=== PATIENT | female | born 2000 | race Hispanic/Latino ===

== ENCOUNTER 2019-09-21 15:42 | Outpatient (CLI) | payer MEDICAID ==
[2019-09-21] MEDS ORDERED: LACTATED RINGERS 1,000 ML IV SCH (16:00)
[2019-09-21 16:07] VITALS: BP 107/65
[2019-09-21 16:23] LABS: Bacteria,Urine 1+ /HPF (Negative); Bilirubin,Urine NEG (Negative); Blood,Urine SM (Negative); Color,Urine Yellow (Yellow); Mucus,Urine FEW /HPF; Urobilinogen,Urine < 2.0 mg/dL (<2.0)
[2019-09-21] MEDS ORDERED: NITROFURANTOIN MONOHYD/M-CRYST 100 MG CAP PO ONE (17:33)
== END 2019-09-21 17:27 | disposition home or self-care (01) ==
LOC: TRG 15:42
PROVIDERS: ATTEND Obstetrics & Gynecology
DX: O26.893 Other specified pregnancy related conditions, third trimester (principal); M54.9 Dorsalgia, unspecified; R11.0 Nausea; O47.03 False labor before 37 completed weeks of gestation, third trimester; Z3A.34 34 weeks gestation of pregnancy
CPT/HCPCS: 59025; 81001; 87086; 96360; 96361; J7120

== ENCOUNTER 2019-11-07 00:28 | Inpatient (IN) | payer MEDICAID ==
[2019-11-07] MEDS ORDERED: LACTATED RINGERS 1,000 ML IV ONE (03:19)
[2019-11-07] MEDS ORDERED: MINERAL OIL 30 ML ORAL LIQD PO PRN ×2 (04:22→22:00)
[2019-11-07] MEDS ORDERED: ePHEDrine SULFATE 50 MG/1 ML INJ IV PRN ×2 (04:22→06:06)
[2019-11-07] MEDS ORDERED: TERBUTALINE 1 MG/1 ML INJ SUB-Q PRN (04:22)
[2019-11-07] MEDS ORDERED: TERBUTALINE 1 MG/1 ML INJ IVP PRN (04:22)
[2019-11-07] MEDS ORDERED: LIDOCAINE (2%) 20 MG/1 ML VIAL 20 ML MDV INFILTRATI ONE (04:22)
--- NOTE | 2019-11-07 04:25 | History and Physical Report ---
History of Present Illness Date of examination: 11/07/19 Date of admission: 11/07/19 01:04 Chief complaint: contractions History of present illness: Pt presents c/o contractions and noted to have slight cervical change after an hour of ambulation. However, after walking was noted to have a run of tacycardia and occassional variable. Both resolved with IVFs. Pt admitted for augmentation of latent labor. EDC Calculations LMP: 11/01/2019 EDC Confirmation: 11/01/2019 Gestational Age: 11 5/7 weeks Past History : 1 Para: 0 Aborta: 0 Past Medical History: Junevile arthritis Past Surgical History: Negative Past Surgical History Family History Summary: Mother (biol.) - Has Family History of Ovarian Cancer - Entered On: 04/17/2019 Social History: Patient is single Smoking History: Patient has never smoked. 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 Infection History Hx of STD: none HIV Risk Eval: low risk Hepatitis B Risk Eval: low risk Personal hx. of genital herpes: no Partner hx. of genital herpes: no Rash, Viral, or Febrile illness since last LMP? no Varicella/Chicken Pox Status: Immunized TB Risk: no Genetic History Congenital Heart Defect: Mom: no Dad: no Jaclyn Disease: Mom: no Dad: no Thalassemia Mom: no Dad: no Neural Tube Defect Mom: no Dad: no Down's Syndrome Mom: no Dad: no Eder-Sachs Mom: no Dad: no Sickle Cell Disease/Trait Mom: no Dad: no Hemophilia Mom: no Dad: no Muscular Dystrophy Mom: no Dad: no Cystic Fibrosis Mom: no Dad: no Tamy Chorea Mom: no Dad: no Mental Retardation Mom: no Dad: no Fragile X Mom: no Dad: no Other Genetic/Chromosomal Disorder Mom: no Dad: no Child w/other defect Mom: no Dad: no Enviromental Exposures Xray Exposure: no Medication, drug, or alcohol use since LMP: no Chemical/Other Exposure: no Exposure to Cat Liter: no Hx of Parvovirus (Fifth Disease): no 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 Active Medications (reviewed today): None Current Allergies (reviewed today): No known allergies Past History Past Medical History: other (see hpi) Past Surgical History: other (see hpi) [employer] SUPERVISOR History: other (see hpi) Family/Genetic History: other (see hpi) - Obstetrical History Expected Date of Delivery: 11/01/19 Actual Gestation: 40 Week(s) 6 Day(s) : 1 Medications and Allergies Allergies Allergy/AdvReac Type Severity Reaction Status Date / Time No Known Allergies Allergy Verified 09/21/19 15:55 Home Medications Medication Instructions Recorded Confirmed Last Taken Type Nitrofurantoin Butler/M-Cryst 100 mg PO Q12HR #14 capsule 09/21/19 Unknown Rx [Macrobid CAP] Terconazole [Terazol 7 Vag Cream] 1 applicator VG QHS #7 cream.appl 09/21/19 Unknown Rx - Vital Signs Vital signs: Vital Signs Temp Pulse Resp BP Pulse Ox 99.2 F 100 H 16 122/80 98 11/07/19 00:56 11/07/19 00:56 11/07/19 00:56 11/07/19 00:56 11/07/19 00:56 Temp Pulse Resp BP Pulse Ox 99.2 F 91 H 16 122/80 99 11/07/19 00:56 11/07/19 03:39 11/07/19 00:56 11/07/19 00:56 11/07/19 03:39 Results Result Diagrams: 11/07/19 03:30 All other labs normal. Assessment and Plan - Patient Problems (1) 40 weeks gestation of Current Visit: Yes Status: Acute (2) Prolonged latent phase of labor Current Visit: Yes Status: Acute (3) Non-reassuring electronic monitoring tracing Current Visit: Yes Status: Acute Plan to address problem: -resolved with IFVS and Oxygen -will place internal monitors -GBS negative -augment labor
[2019-11-07 04:30] LABS: Hematocrit 31.3 % (30.3-42.9); Hemoglobin 10.7 gm/dl (10.1-14.3); Mean Corpuscular HGB Conc 34 % (30-34); Mean Corpuscular Volume 79 fl (79-97); Platelet Count 195 K/mm3 (140-440); Red Blood Count 3.99 M/mm3 (3.65-5.03); Red Cell Distribution Width 13.7 % (13.2-15.2)
[2019-11-07] MEDS ORDERED: OXYTOCIN DRIP 30 UNITS/500 ML BAG IV SCH ×2 (05:00)
[2019-11-07] MEDS ORDERED: OXYTOCIN 20 UNIT/1000ML DRIP 20 UNITS/1,000 ML BAG IV SCH ×2 (05:00→12:00)
--- NOTE | 2019-11-07 05:24 | Progress Note ---
Assessment and Plan - Patient Problems (1) 40 weeks gestation of Current Visit: Yes Status: Acute (2) Non-reassuring electronic monitoring tracing Current Visit: Yes Status: Acute Plan to address problem: -O2 and fluids for now. I d/w risk of c/s for NRFTs she expressed understanding and all questions were addressed and answered. -currently Cat 1 to 2 (3) Active labor at term Current Visit: Yes Status: Acute Subjective - Subjective Date of service: 11/07/19 Principal diagnosis: 40.6 weeks now active labor Interval history: Pt tracing reviewed and difficult to trace baseline at times. Pt does also have some late decels that are not consistent. tacycardia has resolved. Pt advised of tracing findings and risk of operative delivery if it returns to a cat 3 tracing w/o resolution. Currently tracing is cat 2. I d/w AROM with placement of internal monitors.I d/w risk, benefits of placement including but not limited to injury to scalp and disruption of placenta. Pt expressed understanding and agrees to placement at this time. Contractions are 1-3 min spontaneously so will hold pitocin at this time. Objective - Vital Signs Vital Signs: Vital Signs - 12hr 11/07/19 11/07/19 11/07/19 00:56 00:57 01:02 Temperature 99.2 F Pulse Rate 100 H 100 H 100 H Respiratory 16 Rate Blood Pressure 122/80 [Right] O2 Sat by Pulse 98 98 97 Oximetry 11/07/19 11/07/19 11/07/19 01:07 01:12 01:17 Temperature Pulse Rate 98 H 99 H 94 H Respiratory Rate Blood Pressure [Right] O2 Sat by Pulse 98 97 98 Oximetry 11/07/19 11/07/19 11/07/19 01:22 02:19 02:24 Temperature Pulse Rate 89 97 H 98 H Respiratory Rate Blood Pressure [Right] O2 Sat by Pulse 98 98 97 Oximetry 11/07/19 11/07/19 11/07/19 02:29 02:34 02:39 Temperature Pulse Rate 77 89 88 Respiratory Rate Blood Pressure [Right] O2 Sat by Pulse 98 99 98 Oximetry 11/07/19 11/07/19 11/07/19 02:44 02:49 02:54 Temperature Pulse Rate 94 H 94 H 103 H Respiratory Rate Blood Pressure [Right] O2 Sat by Pulse 98 98 98 Oximetry 11/07/19 11/07/19 11/07/19 02:59 03:04 03:09 Temperature Pulse Rate 100 H 89 97 H Respiratory Rate Blood Pressure [Right] O2 Sat by Pulse 98 99 98 Oximetry 11/07/19 11/07/19 11/07/19 03:14 03:19 03:24 Temperature Pulse Rate 96 H 98 H 89 Respiratory Rate Blood Pressure [Right] O2 Sat by Pulse 97 98 98 Oximetry 11/07/19 11/07/19 11/07/19 03:29 03:34 03:39 Temperature Pulse Rate 87 89 91 H Respiratory Rate Blood Pressure [Right] O2 Sat by Pulse 98 99 99 Oximetry - Exam Cardiovascular: Normal S1, Normal S2 FHR: category 2 Cervical Dilatation: 5 (AROM with clear fluid noted. Both monitors placed w/o difficulty with clear fluid flash back in iupc tubing.) Cervical Effacement Percentage: 85 station: 0 Uterine Contraction Pattern: Regular Uterine Tone Measurement Phase: Resting Deep Tendon Reflex Grade: Normal +2 - Labs Labs: Abnormal Labs 11/07/19 03:30 WBC 11.6 H MCH 27 L Laboratory Results - last 24 hr 11/07/19 11/07/19 03:30 03:30 WBC 11.6 H RBC 3.99 Hgb 10.7 Hct 31.3 MCV 79 MCH 27 L MCHC 34 RDW 13.7 Plt Count 195 Blood Type B POSITIVE Antibody Screen Negative
[2019-11-07] MEDS ORDERED: DEXMEDETOMIDINE 200 MCG/2 ML VIAL IV ONE ×2 (05:47→06:56)
[2019-11-07] MEDS ORDERED: NALOXONE 2 MG/2 ML INJ IV PRN (06:06)
--- NOTE | 2019-11-07 06:07 | Anesthesia Consultation ---
Anesthesia Consult and Med Hx Date of service: 11/07/19 - Airway Anesthetic Teeth Evaluation: Good ROM Head & Neck: Adequate Mental/Hyoid Distance: Adequate Mallampati Class: Class II Intubation Access Assessment: Good - Pulmonary Exam CTA: Yes - Cardiac Exam Cardiac Exam: RRR - Pre-Operative Health Status ASA Pre-Surgery Classification: ASA2, Emergency Proposed Anesthetic Plan: Epidural - Pulmonary Hx Asthma: No - Cardiovascular System Hx Hypertension: No - Central Nervous System Hx Seizures: No Hx Psychiatric Problems: No - Endocrine Hx Renal Disease: Yes (UTI) Hx Hypothyroidism: No Hx Hyperthyroidism: No - Hematic Hx Anemia: No Hx Sickle Cell Disease: No - Other Systems Hx Alcohol Use: Yes (BEFORE )
--- NOTE | 2019-11-07 06:09 | Progress Note ---
Labor Epidural - Labor Epidural Start Time: 05:56 Stop Time: 05:59 Performed by:: MARA BRIZUELA Procedure: Patient is requesting a laboring epidural for laboring pain. Patient IDed, H&P reviewed, all questions and concerns were answered, and consent was signed. Timeout was performed at bedside. Patient in sitting position. Sterile prep and drape was performed. [3] ml of 1% lidocaine skin wheal at L[3]- L [4]. 18- gauge Touhy epidural needle was advanced to loss of resistance with air technique. Negative CSF negative blood. Epidural catheter advanced to [15] centimeters. [-] Aspiration [-] test dose. Sterile dressing applied. Patient tolerated procedure.
[2019-11-07] MEDS ORDERED: BUPIVACAINE/PF (0.25%) 2.5 MG/ML 10 ML VIAL INFILTRATI ONE (06:53)
--- NOTE | 2019-11-07 06:55 | Progress Note ---
Assessment and Plan A: 19 y.o. @ term in active labor. Cervical exam: 7.5/90/0. P: Continue with L&D care. Anticipate . Subjective - Subjective Date of service: 11/07/19 (Pt wth pain on left side.) Principal diagnosis: 40.6 weeks now active labor Objective - Vital Signs Vital Signs: Vital Signs - 12hr 11/07/19 11/07/19 11/07/19 00:56 00:57 01:02 Temperature 99.2 F Pulse Rate 100 H 100 H 100 H Respiratory 16 Rate Blood Pressure Blood Pressure 122/80 [Right] O2 Sat by Pulse 98 98 97 Oximetry 11/07/19 11/07/19 11/07/19 01:07 01:12 01:17 Temperature Pulse Rate 98 H 99 H 94 H Respiratory Rate Blood Pressure Blood Pressure [Right] O2 Sat by Pulse 98 97 98 Oximetry 11/07/19 11/07/19 11/07/19 01:22 02:19 02:24 Temperature Pulse Rate 89 97 H 98 H Respiratory Rate Blood Pressure Blood Pressure [Right] O2 Sat by Pulse 98 98 97 Oximetry 11/07/19 11/07/19 11/07/19 02:29 02:34 02:39 Temperature Pulse Rate 77 89 88 Respiratory Rate Blood Pressure Blood Pressure [Right] O2 Sat by Pulse 98 99 98 Oximetry 11/07/19 11/07/19 11/07/19 02:44 02:49 02:54 Temperature Pulse Rate 94 H 94 H 103 H Respiratory Rate Blood Pressure Blood Pressure [Right] O2 Sat by Pulse 98 98 98 Oximetry 11/07/19 11/07/19 11/07/19 02:59 03:04 03:09 Temperature Pulse Rate 100 H 89 97 H Respiratory Rate Blood Pressure Blood Pressure [Right] O2 Sat by Pulse 98 99 98 Oximetry 11/07/19 11/07/19 11/07/19 03:14 03:19 03:24 Temperature Pulse Rate 96 H 98 H 89 Respiratory Rate Blood Pressure Blood Pressure [Right] O2 Sat by Pulse 97 98 98 Oximetry 11/07/19 11/07/19 11/07/19 03:29 03:34 03:39 Temperature Pulse Rate 87 89 91 H Respiratory Rate Blood Pressure Blood Pressure [Right] O2 Sat by Pulse 98 99 99 Oximetry 11/07/19 11/07/19 11/07/19 05:51 05:56 05:59 Temperature Pulse Rate 113 H 109 H Respiratory Rate Blood Pressure 123/67 Blood Pressure [Right] O2 Sat by Pulse 100 100 Oximetry 11/07/19 11/07/19 11/07/19 06:01 06:06 06:08 Temperature Pulse Rate 104 H 88 94 H Respiratory Rate Blood Pressure 119/62 117/58 Blood Pressure [Right] O2 Sat by Pulse 99 99 Oximetry 11/07/19 11/07/19 11/07/19 06:10 06:11 06:16 Temperature Pulse Rate 82 78 91 H Respiratory Rate Blood Pressure 122/60 Blood Pressure [Right] O2 Sat by Pulse 99 98 Oximetry 11/07/19 11/07/19 11/07/19 06:21 06:26 06:31 Temperature Pulse Rate 83 84 81 Respiratory Rate Blood Pressure Blood Pressure [Right] O2 Sat by Pulse 99 97 98 Oximetry 11/07/19 11/07/19 11/07/19 06:36 06:41 06:46 Temperature Pulse Rate 75 69 84 Respiratory Rate Blood Pressure 107/63 Blood Pressure [Right] O2 Sat by Pulse 100 100 100 Oximetry - Exam Breasts: deferred Cardiovascular: Regular rate Lungs: Normal air movement Abdomen: Present: normal appearance Uterus: Present: normal FHR: category 1 Uterine Contraction Monitor Mode: Internal (IUPC, FSE) Cervical Dilatation: 7.5 Cervical Effacement Percentage: 90 station: -1 Uterine Contraction Pattern: Regular Uterine Tone Measurement Phase: Resting Uterine Contraction Intensity: Moderate Extremities: normal Deep Tendon Reflex Grade: Normal +2 - Labs Labs: Abnormal Labs 11/07/19 03:30 WBC 11.6 H MCH 27 L Laboratory Results - last 24 hr 11/07/19 11/07/19 03:30 03:30 WBC 11.6 H RBC 3.99 Hgb 10.7 Hct 31.3 MCV 79 MCH 27 L MCHC 34 RDW 13.7 Plt Count 195 Blood Type B POSITIVE Antibody Screen Negative
[2019-11-07] MEDS ORDERED: fentaNYL-BUPIV 2 MCG/ML-0.125% 200 MCG/100 ML BAG EPIDURAL SCH (07:00)
[2019-11-07] MEDS ORDERED: LACTATED RINGERS 1,000 ML ONE (09:36)
[2019-11-07] MEDS ORDERED: ACETAMINOPHEN 325 MG TAB PO PRN (11:55)
[2019-11-07] MEDS ORDERED: diphenhydrAMINE 25 MG CAP PO PRN (11:55)
[2019-11-07] MEDS ORDERED: WITCH HAZEL/ GLYCERIN PAD TP PRN (11:55)
[2019-11-07] MEDS ORDERED: BENZOCAINE/MENTHOL 20/0.5% TOP SPRAY 56 GM TP PRN (11:55)
[2019-11-07] MEDS ORDERED: ONDANSETRON 4 MG/2 ML INJ IV PRN (11:55)
[2019-11-07] MEDS ORDERED: PROMETHAZINE 25 MG RECT SUPP PR PRN (11:55)
[2019-11-07] MEDS ORDERED: LANOLIN/ZINC/DIMETHICONE (LANSINOH) 7 GM TP PRN (11:55)
[2019-11-07] MEDS ORDERED: PROMETHAZINE 25 MG TAB PO PRN (11:55)
--- NOTE | 2019-11-07 12:05 | Procedure Note ---
OB Delivery Note - Delivery Date of Delivery: 11/07/19 Workers Compensation Coordinator: KYLEE ALTMAN Estimated blood loss: other (400ml) - Vaginal Delivery position: OA Intrapartum events: meconium, extend. tachycardia Delivery induction: none Delivery augmentation: rupture of membranes Delivery monitor: internal FHT, internal uterine Route of delivery: Delivery placenta: spontaneous Delivery cord: 3 umbilical vessels Episiotomy: none Delivery laceration: 2nd degree Delivery repair: vicryl Anesthesia: epidural Delivery comments: over intact perineum of viable female infant. to mothers chest for skin to skin. Cord cut and clamped after cessation of pulse. Infant to [facility] team for evaluation. Spontaneously delivery of placenta, complete, intact. 3 vessels noted. Fundus firm, minimal bleeding noted. Perineum and vagina inspected, 2nd degree perineal laceration noted. Repaired with 3-0 vicryl. Apgars 8,9. Weight 8-3. EBL 400ml. Instruments and sponges counted X2 with RN and asphalt patcher and correct X2. and mother left in stable condition in the care of the RN.
[2019-11-07] MEDS ORDERED: MINERAL OIL 30 ML ORAL LIQD PO ONE (12:15)
--- NOTE | 2019-11-07 14:08 | Post Anesthesia Evaluation ---
- Post Anesthesia Evaluation Patient Participated: Yes Airway Patent: Yes Stable Respiratory Function: Yes Nausea/Vomiting: No Temp > 96.8F: Yes Pain Manageable: Yes Adequeate Hydration: Yes Anesthesia Complications: No Block Receding Appropriately: Yes Patient on Ventilator: No
[2019-11-07] MEDS: IBUPROFEN 600 MG TAB PO SCH (18:00)
[2019-11-07] MEDS ORDERED: MAGNESIUM HYDROXIDE (MOM) ORAL LIQD UDC PO PRN (22:00)
[2019-11-07] MEDS: DOCUSATE SODIUM 100 MG CAP PO SCH (22:20)
[2019-11-07 23:43] LABS: Hematocrit 32.4 % (30.3-42.9); Hemoglobin 11.1 gm/dl (10.1-14.3)
[2019-11-08] MEDS: IBUPROFEN 600 MG TAB PO SCH ×2 (01:55→04:00)
--- NOTE | 2019-11-08 08:12 | Discharge Summary ---
Providers - Providers Date of Admission: 11/07/19 01:04 Date of discharge: 11/08/19 Attending physician: KRISTY HERNANDEZ Primary care physician: KRISTY HERNANDEZ Hospitalization Reason for admission: Labor Condition: Good Pertinent studies: post delivery H&H 11.1/32.4 Procedures: Hospital course: uncomplicated and course Disposition: DC-01 TO HOME OR SELFCARE - Discharge Diagnoses (1) Spontaneous vaginal delivery Status: Acute Core Measure Documentation - Palliative Care Palliative Care/ Comfort Measures: Not Applicable - Core Measures Any of the following diagnoses?: none Exam - Constitutional Vitals: Temp Pulse Resp BP Pulse Ox 98.6 F 100 H 18 111/68 98 11/08/19 00:45 11/08/19 00:45 11/08/19 01:55 11/08/19 00:45 11/08/19 00:45 General appearance: Present: no acute distress, well-nourished - EENT Eyes: Present: PERRL ENT: hearing intact, clear oral mucosa - Neck Neck: Present: supple, normal ROM - Respiratory Respiratory effort: normal Respiratory: bilateral: CTA - Cardiovascular Rhythm: regular Heart Sounds: Absent: rub, click - Extremities Extremities: pulses symmetrical, No edema - Abdominal General gastrointestinal: Present: soft, non-tender, non-distended, normal bowel sounds Female genitourinary: Present: normal - Integumentary Integumentary: Present: clear, warm, dry - Musculoskeletal Musculoskeletal: gait normal, strength equal bilaterally - Psychiatric Psychiatric: appropriate mood/affect, intact judgment & insight - Neurologic Neurologic: CNII-XII intact, moves all extremities - Additional findings Additional findings: lochia scant, fundus firm Plan Activity: no restrictions Diet: regular Follow up with: KRISTY HERNANDEZ MD [Primary Care Provider] - 12/10/19 (Congratulations! Please call [phone] to schedule your visit in 4 weeks. Call for any questions or concerns. ) Prescriptions: Ibuprofen [Motrin] 800 mg PO Q8HR PRN #30 tablet PRN Reason: Pain , Severe (7-10) Ibuprofen [Motrin 800 MG tab] 800 mg PO Q8HR PRN #30 tablet PRN Reason: Pain
[2019-11-08] MEDS ORDERED: PRENATAL VIT27-FE FUMARATE-FOLIC ACID VIT TAB PO SCH (10:00)
[2019-11-08] MEDS ORDERED: IBUPROFEN 800 MG TAB PO SCH (11:00)
[2019-11-08] MEDS ORDERED: IBUPROFEN 800 MG TAB ONE (11:27)
[2019-11-08] MEDS: DOCUSATE SODIUM 100 MG CAP PO SCH (11:30)
[2019-11-08] MEDS ORDERED: DIPHtheria,PERTUSSIS(ACELL),TETANUS VACCINE/PF 0.5 ML VIAL IM ONE (11:56)
[2019-11-08 16:28] VITALS: BP 116/53
== END 2019-11-08 14:30 | disposition home or self-care (01) | DRG 775 ==
LOC: TRG 00:28 → APU 00:53 → TRG 01:04 → LD 01:04 → OBSVTOIN 01:04 → OB 14:23
PROVIDERS: ADMIT Obstetrics & Gynecology; ATTEND Obstetrics & Gynecology
PROC: 10E0XZZ Delivery of Products of Conception, External Approach (ICD-10-PCS; principal; 2019-11-07)
PROC: 0KQM0ZZ Repair Perineum Muscle, Open Approach (ICD-10-PCS; 2019-11-07)
PROC: 3E0234Z Introduction of Serum, Toxoid and Vaccine into Muscle, Percutaneous Approach (ICD-10-PCS; 2019-11-07)
PROC: 3E0R3BZ Introduction of Anesthetic Agent into Spinal Canal, Percutaneous Approach (ICD-10-PCS; 2019-11-07)
PROC: 00HU33Z Insertion of Infusion Device into Spinal Canal, Percutaneous Approach (ICD-10-PCS; 2019-11-07)
DX: O76 Abnormality in fetal heart rate and rhythm complicating labor and delivery (principal); O77.0 Labor and delivery complicated by meconium in amniotic fluid; O70.1 Second degree perineal laceration during delivery; Z3A.40 40 weeks gestation of pregnancy; Z37.0 Single live birth; Z23 Encounter for immunization; Z80.41 Family history of malignant neoplasm of ovary; Z87.440 Personal history of urinary (tract) infections
CPT/HCPCS: 36415; 85014; 85018; 85027; 86850; 86900; 86901; 90715; G0378; J2590; J3490; J7120